=== PATIENT | female | born 1980 | race Caucasian/White ===

== ENCOUNTER 2018-04-21 19:07 | Inpatient (IN) | payer OTHER ==
[~2018-04-21] VITALS: Ht 152.4 cm; Wt 49.4 kg
[2018-04-21] MEDS ORDERED: IV NORMAL SALINE 1000ML BAG 1,000 ML IV ONE (20:45)
--- NOTE | 2018-04-21 20:54 | PHYS DOC ---
Past Medical History Past Medical History: Anxiety Past Surgical History: No Surgical History Alcohol Use: Occasionally Drug Use: None Adult General Chief Complaint Chief Complaint: HEMATEMESIS/VOMITING BLOOD HPI HPI Patient is a 38 year old female who presents with GI bleeding and abdominal pain. Patient states she has been on a three-day alcohol been shrinking excess of 1 gallon of hard liquor daily. She does have a history of alcoholism and frequent binges. She does not have a history of alcohol withdrawal other than feeling a little bit shaky. No seizures. Today, she reports to the ER complaining of abdominal pain and bloody emesis. She began having bloody emesis earlier today. She has had several episodes which she describes to be bright red and large volume. She has also been passing dark red blood clots and bloody diarrheal stools. She complains of diffuse abdominal pain. No fevers. She denies a prior history of any GI bleeding despite her alcohol abuse. Review of Systems Review of Systems Constitutional: Denies fever or chills Eyes: Denies change in visual acuity HENT: Denies nasal congestion or sore throat Respiratory: Denies cough or shortness of breath Cardiovascular: No additional information GI: as documented above : Denies dysuria Musculoskeletal: Denies back pain Integument: Denies rash Neurologic: Denies headache All other systems were reviewed and found to be within normal limits, except as documented in this note. Current Medications Current Medications Current Medications Medications (Trade) Dose Ordered Sig/[facility] Start Time Stop Time Status Last Admin Dose Admin Octreotide Acetate 500 mcg/ Sodium Chloride 101 ml @ 0 mls/hr CONT PRN 04/21/18 20:45 04/21/18 21:17 5 MLS/HR Sodium Chloride 1,000 ml @ 1,000 mls/hr 1X ONCE 04/21/18 20:45 04/21/18 21:44 DC 04/21/18 20:43 1,000 MLS/HR Allergies Allergies Allergies Coded Allergies Type Severity Reaction Last Updated Verified No Known Drug Allergies 03/15/14 No Physical Exam Physical Exam Constitutional: Well developed, well nourished, mild distress 2/2 pain and nausea HENT: Normocephalic, atraumatic, bilateral external ears normal, oropharynx moist Eyes: PERRLA, EOMI, conjunctiva normal Neck: Normal range of motion Cardiovascular:Heart rate regular rhythm, no murmur Lungs & Thorax: Bilateral breath sounds clear to auscultation Abdomen: diffusely tender to palpation with some guarding over the epigastrium Skin: Warm, dry, no erythema, no rash, pale Extremities: equal pulses in all extremities, no edema Neurologic: Alert and oriented X 3, normal motor function Psychologic: Affect normal Current Patient Data Vital Signs Vital Signs Date Time Temp Pulse Resp B/P (MAP) Pulse Ox O2 Delivery O2 Flow Rate FiO2 04/21/18 20:29 107 16 142/61 (88) 99 04/21/18 19:50 98.1 Room Air 98.1 EKG EKG Sinus Tachy No STEMI Interpretation Time: 20:45 Radiology/Procedures Radiology/Procedures FINDINGS: CT chest: Heart is normal in size. No pericardial or pleural effusion. Clear neck base. NG tube is seen with its tip in the fundus of stomach. No enlarged axillary, mediastinal or hilar adenopathy. Central airways are patent. Lungs are clear. No suspicious bony lesions in the chest. CT abdomen pelvis: Liver, spleen, gallbladder, pancreas, adrenals and kidneys are within normal limits. No enlarged retroperitoneal or pelvic adenopathy. There is a lobulated high attenuating lesion in the right hemipelvis measuring 11.4 x 9.6 x 9.3 cm (AP, transverse, cc) causing significant mass effect on the uterus displacing it to the left side and mass effect on the dome of the urinary bladder. Mass effect is also seen on the right external iliac vein. Urinary bladder demonstrates no radiopaque stones. Scattered diverticuli seen in the colon. No bowel obstruction. Normal appendix. 3.0 x 2.7 cm well-circumscribed low attenuating lesion is seen in the left ovary. No pneumoperitoneum. No suspicious bony lesion. IMPRESSION: 1. Large right hemipelvic lesion as described above. Differential diagnoses includes a large hemorrhagic cyst arising from the right adnexa. Left likely this may represent a Loculated hematoma although no significant inflammatory changes seen around this lesion. Gynecologic consultation recommended. Course & Med Decision Making Course & Med Decision Making Pertinent Labs and Imaging studies reviewed. (See chart for details) Patient is seen and examined. Although she is well appearing overall, during the interview, the patient sits upright and has about 4-500 mL of dark red blood emesis. She is moved to a resuscitation room. Acute GI bleeding workup is ordered. Octreotide, Protonix bolus and drip, we'll place NG tube. Medications for pain and nausea. We'll do CT scan. Vitals currently stable. Patient with acute GI bleeding in the emergency department. Her hemoglobin was stable at 10.7. I discussed this patient with the GI physician correctional sergeant who will consult in the morning. I also spoke to the hospitalist on-call who will admit the patient to the ICU for close observation. Incidentally, CT scan was done and revealing for some sort of pelvic mass. A subsequent ultrasound was completed and the mass was found to have blood flow. The patient had not previously been aware of this finding. This is not likely related to her presenting complaint and is incidental. Patient is admitted to the ICU for acute hour hemoglobin surveillance. NG tube was placed in the ER but did not produce significant additional amounts of red blood. The patient not have any acute vital sign changes during the ED course although she did remain mildly tachycardic. Consult is placed for GI to see the patient. I also placed orders for ultrasound and a consult form FROTHING MACHINE OPERATOR to see the patient. Prior to admission, I reviewed the CT findings with the patient and all of her questions were answered. Dragon Disclaimer Dragon Disclaimer This electronic medical record was generated, in whole or in part, using a voice recognition dictation system. Departure Departure Referrals: NO PCP (PCP) VAMSHI STEWART DO Apr 21, 2018 20:54
[2018-04-21] MEDS ORDERED: BENZOCAINE ONE 20% MUCOSAL SPRAY. (20:55)
[2018-04-21] MEDS ORDERED: CONTRAST GIVEN. MC PRN (21:00)
[2018-04-21] MEDS ORDERED: IOHEXOL 300 MG/ML 100ML VIAL. IV ONE (21:00)
[2018-04-21 21:01] LABS: BASO # 0.1 x10^3/uL (0.0-0.2); BASO % 1 % (0-3); EOS % 0 % (0-3); HEMOGLOBIN 10.5 g/dL (12.0-15.5); LYMPH # 1.5 x10^3/uL (1.0-4.8); LYMPH % 16 % (24-48); MEAN CORPUSCULAR HEMOGLOBIN 36 pg (25-35); MEAN CORPUSCULAR HGB CONC 35 g/dL (31-37); MEAN CORPUSCULAR VOLUME 104 fL (79-100); MONO # 0.9 x10^3/uL (0.0-1.1); MONO % 9 % (0-9); NEUT % 73 % (31-73); PLATELET COUNT 88 x10^3/uL (140-400); RED CELL DISTRIBUTION WIDTH 13.7 % (11.5-14.5); WHITE BLOOD COUNT 9.5 x10^3/uL (4.0-11.0)
[2018-04-21] MEDS: PANTOPRAZOLE SODIUM IV DRIP 80 MG in IV NORMAL SALINE 100ML 100 ML IV SCH (21:09)
[2018-04-21 21:10] LABS: PROTHROMBIN TIME PATIENT 14.6 SEC (11.7-14.0)
[2018-04-21 21:11] LABS: CALCIUM 9.1 mg/dL (8.5-10.1); CREATININE 0.8 mg/dL (0.6-1.0); GFR 80.7; POTASSIUM 4.3 mmol/L (3.5-5.1)
[2018-04-21 21:15] LABS: DIRECT BILIRUBIN 0.2 mg/dL (0.0-0.2); TOTAL BILIRUBIN 0.7 mg/dL (0.2-1.0)
[2018-04-21] MEDS ORDERED: ONDANSETRON PF 4 MG/2 ML VIAL. IV ONE (21:15)
[2018-04-21] MEDS ORDERED: fentaNYL PF VIAL 100 MCG/2 ML VIAL IV ONE ×2 (21:15→21:30)
[2018-04-21] MEDS ORDERED: PANTOPRAZOLE IV PUSH 40 MG VIAL. IVP ONE (21:15)
[2018-04-21] MEDS: OCTREOTIDE 500 MCG in IV NORMAL SALINE 100ML 100 ML IV PRN (21:17)
[2018-04-21] MEDS ORDERED: BENZOCAINE ONE 20% MUCOSAL SPRAY. MM ×2 (21:30)
--- NOTE | 2018-04-21 22:33 | EKG ---
[facility] [address] [place] [address] Test Date: 2018-04-21 Test Time: 20:39:47 Pat Name: ALAYNA HERNÁNDEZ Department: Room: 106 1 Gender: F [employer] Farm Operations Manager: : 1980 Requested By: VAMSHI STEWART Order Number: [id number] Reading MD: Carlitos Babcock MD Measurements Intervals [place] Rate: 138 P: 2 [place]: 100 QRS: 69 QRSD: 72 T: 47 QT: 304 QTc: 461 Interpretive Statements SINUS TACHYCARDIA Electronically Signed On 04-22-2018 9:46:08 CDT by Carlitos Babcock MD
[2018-04-21] MEDS ORDERED: fentaNYL PF VIAL 100 MCG/2 ML VIAL IV PRN (22:45)
[2018-04-21] MEDS ORDERED: ONDANSETRON PF 4 MG/2 ML VIAL. IV PRN ×2 (22:45→23:45)
--- NOTE | 2018-04-21 23:08 | RAD ---
PQRS Compliance statement: One or more of the following individualized dose reduction techniques were utilized for this examination: 1. Automated exposure control. 2. Adjustment of the mA and/or kV according to patient size. 3. Use of iterative reconstruction technique. Indication:chest pain, abd pain, gi bleed, pt vomiting blood
Omni 300 75ml,no priors TECHNIQUE: CT chest, abdomen and pelviswith IV contrast with multiplanar reformats. COMPARISON: None FINDINGS: CT chest: Heart is normal in size. No pericardial or pleural effusion. Clear neck base. NG tube is seen with its tip in the fundus of stomach. No enlarged axillary, mediastinal or hilar adenopathy. Central airways are patent. Lungs are clear. No suspicious bony lesions in the chest. CT abdomen pelvis: Liver, spleen, gallbladder, pancreas, adrenals and kidneys are within normal limits. No enlarged retroperitoneal or pelvic adenopathy. There is a lobulated high attenuating lesion in the right hemipelvis measuring 11.4 x 9.6 x 9.3 cm (AP, transverse, cc) causing significant mass effect on the uterus displacing it to the left side and mass effect on the dome of the urinary bladder. Mass effect is also seen on the right external iliac vein. Urinary bladder demonstrates no radiopaque stones. Scattered diverticuli seen in the colon. No bowel obstruction. Normal appendix. 3.0 x 2.7 cm well-circumscribed low attenuating lesion is seen in the left ovary. No pneumoperitoneum. No suspicious bony lesion. IMPRESSION: 1. Large right hemipelvic lesion as described above. Differential diagnoses includes a large hemorrhagic cyst arising from the right adnexa. Left likely this may represent a Loculated hematoma although no significant inflammatory changes seen around this lesion. Gynecologic consultation recommended. Electronically signed by: Randy Jackson DO (04/21/2018 11:04 PM) [facility]
[2018-04-21 23:30] VITALS: BP 157/73
[2018-04-21 23:45] VITALS: BP 153/110
[2018-04-21] MEDS ORDERED: 0.9 % SODIUM CHLORIDE 10 ML DISP.SYRIN. IV PRN (23:45)
[2018-04-21] MEDS ORDERED: BISACODYL 10 MG SUPP.RECT. PR PRN (23:45)
[2018-04-21 23:55] LABS: HEMATOCRIT 27.1 % (36.0-47.0); HEMOGLOBIN 9.7 g/dL (12.0-15.5); RED BLOOD COUNT 2.63 x10^6/uL (3.50-5.40); RED CELL DISTRIBUTION WIDTH 13.6 % (11.5-14.5); WHITE BLOOD COUNT 7.3 x10^3/uL (4.0-11.0)
[2018-04-22] VITALS (22 sets, daily range): BP systolic 129–173; BP diastolic 65–98
[2018-04-22] MEDS: IV NORMAL SALINE 1000ML BAG 1,000 ML IV SCH ×2 (00:34→12:05)
[2018-04-22] MEDS: PHENOL ORAL SPRAY 177ML BOTTLE. PO PRN ×3 (01:32→23:55)
[2018-04-22] MEDS: HYDROmorphone 2 MG/ML VIAL IVP PRN ×7 (01:32→23:59)
[2018-04-22 04:38] LABS: HEMATOCRIT 25.7 % (36.0-47.0); HEMOGLOBIN 9.2 g/dL (12.0-15.5); RED BLOOD COUNT 2.47 x10^6/uL (3.50-5.40); RED CELL DISTRIBUTION WIDTH 13.7 % (11.5-14.5); WHITE BLOOD COUNT 5.9 x10^3/uL (4.0-11.0)
[2018-04-22 05:13] LABS: ALBUMIN 3.6 g/dL (3.4-5.0); ALBUMIN/GLOBULIN RATIO 1.1 (1.0-1.7); CALCIUM 8.5 mg/dL (8.5-10.1); CREATININE 0.8 mg/dL (0.6-1.0); GFR 80.7; POTASSIUM 4.1 mmol/L (3.5-5.1); TOTAL BILIRUBIN 0.6 mg/dL (0.2-1.0)
[2018-04-22] MEDS: PANTOPRAZOLE SODIUM IV DRIP 80 MG in IV NORMAL SALINE 100ML 100 ML IV SCH ×2 (05:50→12:04)
--- NOTE | 2018-04-22 08:13 | RAD ---
Pelvic ultrasound, 04/22/2018: HISTORY: Pelvic mass Transabdominal scans were obtained. The uterus is within normal limits in size and deviated to the left of midline. The intrauterine echo complex is unremarkable. The left ovary measures 3.7 x 3.4 x 3.0 cm. It contains a 2.5 cm simple cyst. Blood flow is present in the left ovary. There is a large lobulated right adnexal mass measuring 11.9 x 9.2 x 8.1 cm. It demonstrates heterogeneous internal echoes. There is internal color flow indicating this is a solid mass. The right ovary cannot be visualized separately from this mass. No free fluid is evident in the pelvis. IMPRESSION: 1. Small left ovarian cyst. 2. Large solid right adnexal mass, most likely of ovarian origin. A neoplastic etiology is suspected. An exophytic uterine mass is much less likely. Electronically signed by: Alfonso Ross MD (04/22/2018 8:10 AM) [facility]
[2018-04-22] MEDS: MULTIVIT INFUSN,ADULT 4,VIT K 10 ML, THIAMINE INJ 100 MG, FOLIC ACID INJ 1 MG in IV NOR... IV SCH (08:22)
[2018-04-22 08:31] LABS: HEMATOCRIT 25.1 % (36.0-47.0); RED BLOOD COUNT 2.42 x10^6/uL (3.50-5.40); RED CELL DISTRIBUTION WIDTH 13.7 % (11.5-14.5); WHITE BLOOD COUNT 5.6 x10^3/uL (4.0-11.0)
--- NOTE | 2018-04-22 09:54 | PDOC2 ---
GI CONSULT Reason For Consult: GI Bleed HPI: HPI: 38 y/o female who drinks at least 17oz vodka ~3 times weekly. Last week had some black stools and had some lightheadedness. Yesterday began vomiting dark and bright red blood, sometimes w/ clots. No h/o GI bleeding. Hgb 10.5, now 9. MCV 104. BUN 33, now 20. On PPI and octreotide drips, also has NGT. On imaging - large solid right adnexal mass. INFORMATION ASSURANCE MANAGER eval pending. Denies chronic issues w/ n/v. Denies reflux and dysphagia. Has intermittent lower abd pain and back pain. No diarrhea or constipation. Weight and appetite stable. No hematochezia. No previous EGD or colonoscopy. No GB, liver, or pancreas history. Takes Excedrin when she has a hangover and an OTC pill to help her sleep. PMH: PMH: insomnia, anxiety, alcoholism/addictions, asthma and allergies FH: Family History: No pertinent hx (denies GI cancers) Social History: Smoke: <1 pack per day ALCOHOL: heavy Drugs: None ROS: GEN: Denies fevers, chills, sweats HEENT: Denies blurred vision, sore throat CV: Denies chest pain RESP: Denies shortness of air, cough GI: Per HPI : Denies hematuria, dysuria ENDO: Denies weight changes NEURO: +lightheaded MSK: Denies weakness, joint pain/swelling SKIN: Denies jaundice, pruritus Vitals: Vitals: Vital Signs Date Time Temp Pulse Resp B/P (MAP) Pulse Ox O2 Delivery O2 Flow Rate FiO2 04/22/18 08:21 23 99 Room Air 04/22/18 08:00 98.3 104 144/87 (106) 98.3 Labs: Labs: Laboratory Tests Test 04/21/18 20:50 04/21/18 22:15 04/21/18 23:50 04/22/18 04:00 White Blood Count 9.5 x10^3/uL (4.0-11.0) 7.3 x10^3/uL (4.0-11.0) 5.9 x10^3/uL (4.0-11.0) Red Blood Count 2.90 x10^6/uL (3.50-5.40) 2.63 x10^6/uL (3.50-5.40) 2.47 x10^6/uL (3.50-5.40) Hemoglobin 10.5 g/dL (12.0-15.5) 9.7 g/dL (12.0-15.5) 9.2 g/dL (12.0-15.5) Hematocrit 30.0 % (36.0-47.0) 27.1 % (36.0-47.0) 25.7 % (36.0-47.0) Mean Corpuscular Volume 104 fL (79-100) 103 fL (79-100) 104 fL (79-100) Mean Corpuscular Hemoglobin 36 pg (25-35) 37 pg (25-35) 37 pg (25-35) Mean Corpuscular Hemoglobin Concent 35 g/dL (31-37) 36 g/dL (31-37) 36 g/dL (31-37) Red Cell Distribution Width 13.7 % (11.5-14.5) 13.6 % (11.5-14.5) 13.7 % (11.5-14.5) Platelet Count 88 x10^3/uL (140-400) 76 x10^3/uL (140-400) 68 x10^3/uL (140-400) Neutrophils (%) (Auto) 73 % (31-73) Lymphocytes (%) (Auto) 16 % (24-48) Monocytes (%) (Auto) 9 % (0-9) Eosinophils (%) (Auto) 0 % (0-3) Basophils (%) (Auto) 1 % (0-3) Neutrophils # (Auto) 7.0 x10^3uL (1.8-7.7) Lymphocytes # (Auto) 1.5 x10^3/uL (1.0-4.8) Monocytes # (Auto) 0.9 x10^3/uL (0.0-1.1) Eosinophils # (Auto) 0.0 x10^3/uL (0.0-0.7) Basophils # (Auto) 0.1 x10^3/uL (0.0-0.2) Prothrombin Time 14.6 SEC (11.7-14.0) Prothromb Time International Ratio 1.2 (0.8-1.1) Activated Partial Thromboplast Time 24 SEC (24-38) Maternal Serum HCG Beta Subunit < 1 mIU/mL (0-5) Sodium Level 139 mmol/L (136-145) 139 mmol/L (136-145) Potassium Level 4.3 mmol/L (3.5-5.1) 4.1 mmol/L (3.5-5.1) Chloride Level 101 mmol/L (98-107) 103 mmol/L (98-107) Carbon Dioxide Level 23 mmol/L (21-32) 25 mmol/L (21-32) Anion Gap 15 (6-14) 11 (6-14) Blood Urea Nitrogen 33 mg/dL (7-20) 20 mg/dL (7-20) Creatinine 0.8 mg/dL (0.6-1.0) 0.8 mg/dL (0.6-1.0) Estimated GFR (Cockcroft-Gault) 80.7 80.7 Glucose Level 136 mg/dL (70-99) 111 mg/dL (70-99) Calcium Level 9.1 mg/dL (8.5-10.1) 8.5 mg/dL (8.5-10.1) Total Bilirubin 0.7 mg/dL (0.2-1.0) 0.6 mg/dL (0.2-1.0) Direct Bilirubin 0.2 mg/dL (0.0-0.2) Aspartate Amino Transf (AST/SGOT) 36 U/L (15-37) 16 U/L (15-37) Alanine Aminotransferase (ALT/SGPT) 19 U/L (14-59) 19 U/L (14-59) Alkaline Phosphatase 75 U/L (46-116) 61 U/L (46-116) Troponin I Quantitative < 0.017 ng/mL (0.000-0.055) Total Protein 8.0 g/dL (6.4-8.2) 7.0 g/dL (6.4-8.2) Albumin 4.0 g/dL (3.4-5.0) 3.6 g/dL (3.4-5.0) Lipase 86 U/L (73-393) Lactic Acid Level 1.1 mmol/L (0.4-2.0) BUN/Creatinine Ratio 25 (6-20) Albumin/Globulin Ratio 1.1 (1.0-1.7) Test 04/22/18 08:20 White Blood Count 5.6 x10^3/uL (4.0-11.0) Red Blood Count 2.42 x10^6/uL (3.50-5.40) Hemoglobin 9.0 g/dL (12.0-15.5) Hematocrit 25.1 % (36.0-47.0) Mean Corpuscular Volume 104 fL (79-100) Mean Corpuscular Hemoglobin 37 pg (25-35) Mean Corpuscular Hemoglobin Concent 36 g/dL (31-37) Red Cell Distribution Width 13.7 % (11.5-14.5) Platelet Count 70 x10^3/uL (140-400) Allergies: Coded Allergies: No Known Drug Allergies (Unverified , 03/15/14) Medications: Current Medications Medications (Trade) Dose Ordered Sig/Karis Route PRN Reason Start Time Stop Time Status Last Admin Dose Admin Sodium Chloride 1,000 ml @ 1,000 mls/hr 1X ONCE IV 04/21/18 20:45 04/21/18 21:44 DC 04/21/18 20:43 Octreotide Acetate 500 mcg/ Sodium Chloride 101 ml @ 0 mls/hr CONT PRN IV SEE I/O RECORD 04/21/18 20:45 04/21/18 21:17 Pantoprazole Sodium 80 mg/ Sodium Chloride 100 ml @ 10 mls/hr Q10H IV 04/21/18 21:30 04/22/18 05:50 Pantoprazole Sodium (PROTONIX VIAL for IV PUSH) 80 mg 1X ONCE IVP 04/21/18 21:15 04/21/18 21:16 DC 04/21/18 21:00 Fentanyl Citrate (Fentanyl 2ml Vial) 50 mcg 1X ONCE IV 04/21/18 21:15 04/21/18 21:16 DC 04/21/18 20:59 Ondansetron HCl (Zofran) 4 mg 1X ONCE IV 04/21/18 21:15 04/21/18 21:16 DC 04/21/18 20:59 Iohexol (Omnipaque 300 Mg/ml) 75 ml 1X ONCE IV 04/21/18 21:00 04/21/18 21:01 DC 04/21/18 21:00 Benzocaine (Hurricaine One) 1 spray 1X ONCE MM 04/21/18 21:30 04/21/18 21:31 DC 04/21/18 21:08 Benzocaine (Hurricaine One) 1 spray 1X ONCE MM 04/21/18 21:30 04/21/18 21:31 DC 04/21/18 21:08 Fentanyl Citrate (Fentanyl 2ml Vial) 50 mcg 1X ONCE IV 04/21/18 21:30 04/21/18 21:31 DC 04/21/18 21:15 Fentanyl Citrate (Fentanyl 2ml Vial) 50 mcg PRN Q1HR PRN IV PAIN 04/21/18 22:45 04/22/18 08:40 DC 04/21/18 23:54 Sodium Chloride 1,000 ml @ 75 mls/hr [id number] IV 04/21/18 22:45 04/22/18 22:44 04/22/18 00:34 Lorazepam (Ativan) 0.5 mg PRN Q6HRS PRN IV ANXIETY / AGITATION 04/21/18 23:45 04/22/18 02:21 Multivitamins 10 ml/Thiamine HCl 100 mg/Folic Acid 1 mg/Sodium Chloride 1,011.2 ml @ 100 mls/ hr DAILY IV 04/22/18 09:00 04/26/18 19:07 04/22/18 08:22 Throat Lozenges (Chloraseptic) 1 spray PRN Q2HR PRN PO SORE THROAT 04/22/18 01:00 04/22/18 04:13 Hydromorphone HCl (Dilaudid) 0.5 mg PRN Q3HRS PRN IVP PAIN 04/22/18 01:00 04/22/18 08:21 Imaging: Imaging: Chest/A/P CT IMPRESSION: 1. Large right hemipelvic lesion as described above. Differential diagnoses includes a large hemorrhagic cyst arising from the right adnexa. Left likely this may represent a Loculated hematoma although no significant inflammatory changes seen around this lesion. Gynecologic consultation recommended. Transvaginal US IMPRESSION: 1. Small left ovarian cyst. 2. Large solid right adnexal mass, most likely of ovarian origin. A neoplastic etiology is suspected. An exophytic uterine mass is much less likely. PE: GEN: NAD HEENT: Atraumatic, NGT w/ watery reddish pinkish material LUNGS: CTAB HEART: tachycardic ABD: quiet, soft, not particularly tender, non-distended EXTREMITY: No edema SKIN: No rashes, no jaundice NEURO/PSYCH: A & O 3 A/P: A/P: Hematemesis, dark stools Macrocytic anemia Alcohol abuse Right adnexal mass NSAID use -- She agrees to EGD this afternoon and requests NGT not be removed "until she's asleep." Continue PPI, will review need for octreotide w/ Dr. Escalona. Monitor labs, withdrawal precautions, await INFORMATION ASSURANCE MANAGER thoughts. BERNADETTE DUKES Apr 22, 2018 09:54
[2018-04-22] MEDS: IV RINGERS,LACTATED 1000ML 1,000 ML IV SCH ×2 (10:00→15:37)
[2018-04-22] MEDS ORDERED: MIDAZOLAM HCL/PF 2 MG/2 ML VIAL. IV PRN (10:00)
[2018-04-22] MEDS ORDERED: LIDOCAINE 1% PF 2 ML VIAL. ID PRN ×2 (10:00→10:30)
[2018-04-22] MEDS ORDERED: fentaNYL PF VIAL 100 MCG/2 ML VIAL IV PRN ×4 (10:00→10:30)
[2018-04-22] MEDS ORDERED: IV RINGERS,LACTATED 1000ML 1,000 ML IV SCH (10:18)
[2018-04-22] MEDS ORDERED: HYDROmorphone 2 MG/ML VIAL IV PRN (10:30)
[2018-04-22] MEDS ORDERED: MORPHINE SULFATE 2 MG/ML VIAL. IV PRN (10:30)
[2018-04-22] MEDS ORDERED: ONDANSETRON PF 4 MG/2 ML VIAL. IV PRN (10:30)
[2018-04-22] MEDS ORDERED: PROCHLORPERAZINE 10 MG/2 ML VIAL. IV PRN (10:30)
[2018-04-22] MEDS: OCTREOTIDE 500 MCG in IV NORMAL SALINE 100ML 100 ML IV PRN (13:23)
[2018-04-22 13:56] LABS: HEMOGLOBIN 8.9 g/dL (12.0-15.5); RED BLOOD COUNT 2.39 x10^6/uL (3.50-5.40); RED CELL DISTRIBUTION WIDTH 13.7 % (11.5-14.5); WHITE BLOOD COUNT 6.9 x10^3/uL (4.0-11.0)
--- NOTE | 2018-04-22 14:00 | HP ---
ADMIT DATE: 04/22/2018 CHIEF COMPLAINT: Abdominal pain and hematemesis. HISTORY OF PRESENT ILLNESS: The patient is a pleasant 38-year-old female who drinks too much. She presents to the ER with hematemesis and abdominal pain that has been occurring for a couple of days. She states she normally drinks about a liter of vodka a day. Sometimes that lasts her a couple of days. She tried taking some hmcg-ghb-jnoqgzk meds, but that did not seem to be working. She states she has lost about 15 pounds in the past couple of weeks as well. The bleeding was bright red and large volume. She is also having bloody stools with clots. While in the ER, we checked some labs. Her hemoglobin is low at 9. The patient has been admitted. She is scheduled for an EGD this afternoon. We suspect she has esophageal varices, but interestingly when we did the imaging, we find an incidental finding of a pelvic mass, it is described as large solid right adnexal mass. We will also consult INDEPENDENT CONTRACTOR. PAST MEDICAL HISTORY: Alcoholism, anxiety. ALLERGIES: None. FAMILY HISTORY: Hypertension. SOCIAL HISTORY: She drinks a liter of vodka a day. I think she smokes socially. No drugs. She used to work, but apparently has lost her job. MEDICATIONS: Reviewed, please refer to the MRAD, but she is on mostly gigo-hgj-cauzcqe meds. REVIEW OF SYSTEMS: GENERAL: No history of weight change, weakness or fevers. SKIN: No bruising, hair changes or rashes. EYES: No blurred, double or loss of vision. NOSE AND THROAT: No history of nosebleeds, hoarseness or sore throat. HEART: No history of palpitations, chest pain or shortness of breath on exertion. LUNGS: Denies cough, hemoptysis, wheezing or shortness of breath. GASTROINTESTINAL: She complains of abdominal pain and hematemesis. GENITOURINARY: No history of frequency, urgency, hesitancy or nocturia. NEUROLOGIC: Denies history of numbness, tingling, tremor or weakness. PSYCHIATRIC: She complains of depression. ENDOCRINE: No history of heat or cold intolerance, polyuria or polydipsia. EXTREMITIES: Denies muscle weakness, joint pain, pain on walking or stiffness. PHYSICAL EXAMINATION: VITAL SIGNS: Temperature afebrile, pulse 80, respirations 20, blood pressure 156/84, O2 sat 98%. GENERAL: She is alert, cooperative. Her mom is present. Mom is good support for her. HEART: Normal S1, S2. LUNGS: Clear to auscultation. ABDOMEN: Soft and tender. EXTREMITIES: Trace edema. SKIN: No rashes. ENDOCRINE: No thyromegaly. LYMPHATICS: No cervical nodes. HEMATOPOIETIC: No bruising. LABORATORY DATA: Hemoglobin is 9 this morning. Electrolytes are normal. Iron is high at 198, iron saturation high at 77. Liver function tests are surprisingly normal. ASSESSMENT AND PLAN: Gastrointestinal bleed, suspect esophageal varices. The patient has been admitted. We will follow hemoglobin levels, IV proton pump inhibitors, consult GI and I think she is scheduled for an endoscopy this afternoon. We will transfuse if she drops below 8. Home meds. Prognosis is guarded. I told her to please quit drinking alcohol. FEMI LEW DO DR: HERBERT/alexis JOB#: [id number] / [id number]
[2018-04-22] MEDS ORDERED: PROPOFOL 40 ML IV ONE (14:33)
[2018-04-22] MEDS ORDERED: EPINEPHrine SYRINGE 1 MG/10 ML SYRINGE ONE (14:44)
[2018-04-22] MEDS ORDERED: EPINEPHrine 1 MG/ML VIAL INJ ONE (14:45)
--- NOTE | 2018-04-22 14:48 | PDOC4 ---
PROCEDURE Procedure Hematemesis, bleeding EGD anesthesia Findings- normal esophagus- MW at GE junction- injected with epi 2 cc- gastritis without ulcer, duodenitis without ulcer - NO active bleeding Plan- slowly advance diet stop drips, give PO LAYNE PENA MD Apr 22, 2018 14:48
[2018-04-22 16:07] LABS: HEMATOCRIT 23.9 % (36.0-47.0); HEMOGLOBIN 8.3 g/dL (12.0-15.5); RED BLOOD COUNT 2.29 x10^6/uL (3.50-5.40); RED CELL DISTRIBUTION WIDTH 13.6 % (11.5-14.5); WHITE BLOOD COUNT 10.8 x10^3/uL (4.0-11.0)
[2018-04-22] MEDS: PROCHLORPERAZINE 10 MG/2 ML VIAL. IV PRN (17:42)
[2018-04-22 20:16] LABS: HEMATOCRIT 23.3 % (36.0-47.0); HEMOGLOBIN 8.4 g/dL (12.0-15.5); RED BLOOD COUNT 2.23 x10^6/uL (3.50-5.40); RED CELL DISTRIBUTION WIDTH 13.5 % (11.5-14.5); WHITE BLOOD COUNT 8.9 x10^3/uL (4.0-11.0)
[2018-04-22 23:48] LABS: HEMATOCRIT 24.7 % (36.0-47.0); HEMOGLOBIN 8.8 g/dL (12.0-15.5); RED BLOOD COUNT 2.38 x10^6/uL (3.50-5.40); RED CELL DISTRIBUTION WIDTH 13.5 % (11.5-14.5); WHITE BLOOD COUNT 8.5 x10^3/uL (4.0-11.0)
[2018-04-22] MEDS: ZOLPIDEM 5 MG TABLET. PO PRN (23:54)
--- NOTE | 2018-04-23 01:30 | CONS ---
DATE OF CONSULTATION: 04/22/2018 REASON FOR CONSULTATION: Pelvic mass. CONSULTING PHYSICIAN: Dr. Samuel. CONSULTING SERVICE: Dr. Freddy Stacy, SL[employer] OFF MILL TENDER. HISTORY OF PRESENT ILLNESS: This is a 38-year-old very anxious white female, 4, para 2 with 2 previous terminations, presented to the ER with hematemesis, possible hemoptysis and hematochezia. The patient was worked up by GI and Internal Medicine for that. During her evaluation with CT and vaginal ultrasound, the patient was noted to have a considerably large right adnexal mass measuring 11.9 x 9.2 x 8.1. It appears to be a solid mass and the right ovary cannot be visualized. There is no free fluid in the pelvis. The patient has not had any complaints of pelvic pain or abnormal uterine bleeding as stated before. Last menstrual period was approximately 2 weeks ago. She reports them as regular and normal. PAST MEDICAL HISTORY: Alcohol abuse, anxiety. PAST SURGICAL HISTORY: Leg surgery for broken leg, otherwise none. FAMILY HISTORY: Hypertension, diabetes on both sides. SOCIAL HISTORY: Positive for tobacco and alcohol. ALLERGIES: None. REVIEW OF SYSTEMS: Per HPI. PHYSICAL EXAMINATION: Review Dr. Samuel's exam. ABDOMEN: Shows no tenderness, scaphoid. No rebound, no masses palpated. PELVIC: We will perform pelvic exam in the morning and bring the patient down the third floor. LABORATORY DATA: Reviewed. IMPRESSION: Gastrointestinal bleed secondary to alcohol abuse, anemia and pelvic mass, incidental finding on CT. A long discussion was done with the patient and the patient's mother. The patient was reassured that the first step would be getting a CA-125 and CEA and perform a pelvic exam. There is no 100% way to tell whether this is malignant except for a tissue diagnosis, but a CA-125 with allow us to determine how that is to be performed when the CA-125 is normal, but the patient can have surgery by myself or another pathology technician if she deems to have it done after the information is back. If the CA-125 is elevated, I would refer her to a STEWARD DISHWASHER oncologist. I appreciate you allowing me to participate in the care of this patient. If you have any questions about this patient or any other patient, feel free to contact me. FREDDY STACY MD DR: VICTOR HUGO/alexis JOB#: [id number] / [id number]
[2018-04-23 03:06] VITALS: BP 126/74
[2018-04-23] MEDS: HYDROmorphone 2 MG/ML VIAL IVP PRN ×3 (08:04→20:30)
[2018-04-23 08:05] VITALS: BP 131/84
[2018-04-23] MEDS: MULTIVIT INFUSN,ADULT 4,VIT K 10 ML, THIAMINE INJ 100 MG, FOLIC ACID INJ 1 MG in IV NOR... IV SCH (08:29)
[2018-04-23] MEDS: PANTOPRAZOLE 40 MG TABLET.DR. PO SCH (08:34)
--- NOTE | 2018-04-23 08:56 | PDOC ---
Provider Note Provider Note Pelvic Exam Nl est gent vaginal mucosa nl cervix nl no CMT large smooth R adnexal mass mobile unable to palpate uterus or there was no l adnexal masses PAP performed without difficulty Awaiting Ca 125 pt at some point needs tissue diagnosis if ca125 is nl Can be followed on a out pt basis FREDDY ELAM MD Apr 23, 2018 08:56
[2018-04-23] MEDS ORDERED: ACETAMINOPHEN 500 MG TABLET PO PRN (09:00)
[2018-04-23] MEDS ORDERED: diphenhydrAMINE HCL 25 MG CAPSULE PO PRN (09:00)
[2018-04-23] MEDS ORDERED: ONDANSETRON PF 4 MG/2 ML VIAL. IV PRN (09:00)
[2018-04-23] MEDS ORDERED: chlordiazePOXIDE HCL 25 MG CAPSULE PO PRN (09:00)
[2018-04-23 11:13] VITALS: BP 94/60
[2018-04-23 11:26] LABS: CA 125 9.3 U/mL (0.0-38.1)
--- NOTE | 2018-04-23 11:41 | PDOC3 ---
Discharge Summary Visit Information Date of Admission: Apr 21, 2018 Date of Discharge: Apr 23, 2018 Admitting Diagnosis Comment: hematemesis resolved status post EGD 04/22/18 - SMALL Jones francis tear Small left ovarian cyst. Large solid right adnexal mass, most likely of ovarian origin. A neoplastic etiology is suspected. Macrocytic anemia Alcohol abuse NSAID use Brief Hospital Course Allergies Allergies Coded Allergies Type Severity Reaction Last Updated Verified No Known Drug Allergies 04/22/18 No Vital Signs Vital Signs Date Time Temp Pulse Resp B/P (MAP) Pulse Ox O2 Delivery O2 Flow Rate FiO2 04/23/18 11:13 97.7 98 16 94/60 (71) 100 Room Air 97.7 04/22/18 14:53 2 Lab Results Laboratory Tests Test 04/21/18 20:50 04/21/18 22:15 04/21/18 23:40 04/21/18 23:50 White Blood Count 9.5 x10^3/uL (4.0-11.0) 7.3 x10^3/uL (4.0-11.0) Red Blood Count 2.90 x10^6/uL (3.50-5.40) 2.63 x10^6/uL (3.50-5.40) Hemoglobin 10.5 g/dL (12.0-15.5) 9.7 g/dL (12.0-15.5) Hematocrit 30.0 % (36.0-47.0) 27.1 % (36.0-47.0) Mean Corpuscular Volume 104 fL (79-100) 103 fL (79-100) Mean Corpuscular Hemoglobin 36 pg (25-35) 37 pg (25-35) Mean Corpuscular Hemoglobin Concent 35 g/dL (31-37) 36 g/dL (31-37) Red Cell Distribution Width 13.7 % (11.5-14.5) 13.6 % (11.5-14.5) Platelet Count 88 x10^3/uL (140-400) 76 x10^3/uL (140-400) Neutrophils (%) (Auto) 73 % (31-73) Lymphocytes (%) (Auto) 16 % (24-48) Monocytes (%) (Auto) 9 % (0-9) Eosinophils (%) (Auto) 0 % (0-3) Basophils (%) (Auto) 1 % (0-3) Neutrophils # (Auto) 7.0 x10^3uL (1.8-7.7) Lymphocytes # (Auto) 1.5 x10^3/uL (1.0-4.8) Monocytes # (Auto) 0.9 x10^3/uL (0.0-1.1) Eosinophils # (Auto) 0.0 x10^3/uL (0.0-0.7) Basophils # (Auto) 0.1 x10^3/uL (0.0-0.2) Prothrombin Time 14.6 SEC (11.7-14.0) Prothromb Time International Ratio 1.2 (0.8-1.1) Activated Partial Thromboplast Time 24 SEC (24-38) Maternal Serum HCG Beta Subunit < 1 mIU/mL (0-5) Sodium Level 139 mmol/L (136-145) Potassium Level 4.3 mmol/L (3.5-5.1) Chloride Level 101 mmol/L (98-107) Carbon Dioxide Level 23 mmol/L (21-32) Anion Gap 15 (6-14) Blood Urea Nitrogen 33 mg/dL (7-20) Creatinine 0.8 mg/dL (0.6-1.0) Estimated GFR (Cockcroft-Gault) 80.7 Glucose Level 136 mg/dL (70-99) Calcium Level 9.1 mg/dL (8.5-10.1) Total Bilirubin 0.7 mg/dL (0.2-1.0) Direct Bilirubin 0.2 mg/dL (0.0-0.2) Aspartate Amino Transf (AST/SGOT) 36 U/L (15-37) Alanine Aminotransferase (ALT/SGPT) 19 U/L (14-59) Alkaline Phosphatase 75 U/L (46-116) Troponin I Quantitative < 0.017 ng/mL (0.000-0.055) Total Protein 8.0 g/dL (6.4-8.2) Albumin 4.0 g/dL (3.4-5.0) Lipase 86 U/L (73-393) Lactic Acid Level 1.1 mmol/L (0.4-2.0) Nasal Screen MRSA (PCR) Negative (Negative) Test 04/22/18 04:00 04/22/18 08:20 04/22/18 11:40 04/22/18 16:00 White Blood Count 5.9 x10^3/uL (4.0-11.0) 5.6 x10^3/uL (4.0-11.0) 6.9 x10^3/uL (4.0-11.0) 10.8 x10^3/uL (4.0-11.0) Red Blood Count 2.47 x10^6/uL (3.50-5.40) 2.42 x10^6/uL (3.50-5.40) 2.39 x10^6/uL (3.50-5.40) 2.29 x10^6/uL (3.50-5.40) Hemoglobin 9.2 g/dL (12.0-15.5) 9.0 g/dL (12.0-15.5) 8.9 g/dL (12.0-15.5) 8.3 g/dL (12.0-15.5) Hematocrit 25.7 % (36.0-47.0) 25.1 % (36.0-47.0) 25.0 % (36.0-47.0) 23.9 % (36.0-47.0) Mean Corpuscular Volume 104 fL (79-100) 104 fL (79-100) 105 fL (79-100) 104 fL (79-100) Mean Corpuscular Hemoglobin 37 pg (25-35) 37 pg (25-35) 37 pg (25-35) 36 pg ( 25-35) Mean Corpuscular Hemoglobin Concent 36 g/dL (31-37) 36 g/dL (31-37) 36 g/dL (31-37) 35 g/dL (31-37) Red Cell Distribution Width 13.7 % (11.5-14.5) 13.7 % (11.5-14.5) 13.7 % (11.5-14.5) 13.6 % (11.5-14.5) Platelet Count 68 x10^3/uL (140-400) 70 x10^3/uL (140-400) 68 x10^3/uL (140-400) 63 x10^3/uL (140-400) Sodium Level 139 mmol/L (136-145) Potassium Level 4.1 mmol/L (3.5-5.1) Chloride Level 103 mmol/L (98-107) Carbon Dioxide Level 25 mmol/L (21-32) Anion Gap 11 (6-14) Blood Urea Nitrogen 20 mg/dL (7-20) Creatinine 0.8 mg/dL (0.6-1.0) Estimated GFR (Cockcroft-Gault) 80.7 BUN/Creatinine Ratio 25 (6-20) Glucose Level 111 mg/dL (70-99) Calcium Level 8.5 mg/dL (8.5-10.1) Total Bilirubin 0.6 mg/dL (0.2-1.0) Aspartate Amino Transf (AST/SGOT) 16 U/L (15-37) Alanine Aminotransferase (ALT/SGPT) 19 U/L (14-59) Alkaline Phosphatase 61 U/L (46-116) Total Protein 7.0 g/dL (6.4-8.2) Albumin 3.6 g/dL (3.4-5.0) Albumin/Globulin Ratio 1.1 (1.0-1.7) Iron Level 198 ug/dL (50-170) Total Iron Binding Capacity 256 ug/dL (250-450) Iron Saturation 77 % (15-34) Vitamin B12 Level 348 pg/mL (247-911) Test 04/22/18 20:05 04/22/18 23:44 White Blood Count 8.9 x10^3/uL (4.0-11.0) 8.5 x10^3/uL (4.0-11.0) Red Blood Count 2.23 x10^6/uL (3.50-5.40) 2.38 x10^6/uL (3.50-5.40) Hemoglobin 8.4 g/dL (12.0-15.5) 8.8 g/dL (12.0-15.5) Hematocrit 23.3 % (36.0-47.0) 24.7 % (36.0-47.0) Mean Corpuscular Volume 104 fL (79-100) 104 fL (79-100) Mean Corpuscular Hemoglobin 38 pg (25-35) 37 pg (25-35) Mean Corpuscular Hemoglobin Concent 36 g/dL (31-37) 36 g/dL (31-37) Red Cell Distribution Width 13.5 % (11.5-14.5) 13.5 % (11.5-14.5) Platelet Count 62 x10^3/uL (140-400) 66 x10^3/uL (140-400) CA 125 Antigen 9.3 U/mL (0.0-38.1) Laboratory Tests Test 04/22/18 11:40 04/22/18 16:00 04/22/18 20:05 04/22/18 23:44 White Blood Count 6.9 x10^3/uL (4.0-11.0) 10.8 x10^3/uL (4.0-11.0) 8.9 x10^3/uL (4.0-11.0) 8.5 x10^3/uL (4.0-11.0) Red Blood Count 2.39 x10^6/uL (3.50-5.40) 2.29 x10^6/uL (3.50-5.40) 2.23 x10^6/uL (3.50-5.40) 2.38 x10^6/uL (3.50-5.40) Hemoglobin 8.9 g/dL (12.0-15.5) 8.3 g/dL (12.0-15.5) 8.4 g/dL (12.0-15.5) 8.8 g/dL (12.0-15.5) Hematocrit 25.0 % (36.0-47.0) 23.9 % (36.0-47.0) 23.3 % (36.0-47.0) 24.7 % (36.0-47.0) Mean Corpuscular Volume 105 fL (79-100) 104 fL (79-100) 104 fL (79-100) 104 fL (79-100) Mean Corpuscular Hemoglobin 37 pg (25-35) 36 pg (25-35) 38 pg (25-35) 37 pg ( 25-35) Mean Corpuscular Hemoglobin Concent 36 g/dL (31-37) 35 g/dL (31-37) 36 g/dL (31-37) 36 g/dL (31-37) Red Cell Distribution Width 13.7 % (11.5-14.5) 13.6 % (11.5-14.5) 13.5 % (11.5-14.5) 13.5 % (11.5-14.5) Platelet Count 68 x10^3/uL (140-400) 63 x10^3/uL (140-400) 62 x10^3/uL (140-400) 66 x10^3/uL (140-400) CA 125 Antigen 9.3 U/mL (0.0-38.1) Brief Hospital Course Ms. Meier is a 38 old female who uses NSAIDs and also was an alcoholic admitted because of hematemesis and was found to have a small Jones- Francis tear via EGD 04/22/18. Hemodynamically stable. Incidental finding of a large solid right adnexal mass, could not rule out malignancy in origin. CA-125 ordered but that is still pending. Seen by [employer] 6 DEALER. I advised to follow-up with OCCUPATIONAL THERAPIST ASSISTANTS onco if CA 125 is elevated But our OCCUPATIONAL THERAPIST ASSISTANTS will follow up or set up elective ovarian surgery if CA 125 is not elevated as per chart/[employer]UP[employer] THERAPIST [employer]IST[employer] note reviewed by myself. Patient seen and examined, cleared by GI to DC. Tolerating regular diet Consults performed GI, [employer] DEALER Procedures performed EGD 04/22/18-small Jones-Francis tear Rx on chart Discharge Information Condition at Discharge: Improved, Stable Follow Up: Weeks (ff up Dr Regis jimenez CA 125 reuslts) Disposition/Orders: D/C to Home JACKI MENDEZ MD Apr 23, 2018 11:41
[2018-04-23] MEDS ORDERED: PANT20TA2 PO (11:44)
[2018-04-23] MEDS ORDERED: CHLO1CAP PO (11:44)
--- NOTE | 2018-04-23 11:55 | PDOC ---
Subjective: Subjective: I saw her earlier this morning. Tolerating some solid foods (toast) but still has occasional nausea and mid abdominal soreness. No bleeding or vomiting. Objective: Vital Signs: Vital Signs Date Time Temp Pulse Resp B/P (MAP) Pulse Ox O2 Delivery O2 Flow Rate FiO2 04/23/18 11:13 97.7 98 16 94/60 (71) 100 Room Air 97.7 04/22/18 14:53 2 Labs: Laboratory Tests Test 04/22/18 16:00 04/22/18 20:05 04/22/18 23:44 White Blood Count 10.8 x10^3/uL 8.9 x10^3/uL 8.5 x10^3/uL Red Blood Count 2.29 x10^6/uL 2.23 x10^6/uL 2.38 x10^6/uL Hemoglobin 8.3 g/dL 8.4 g/dL 8.8 g/dL Hematocrit 23.9 % 23.3 % 24.7 % Mean Corpuscular Volume 104 fL 104 fL 104 fL Mean Corpuscular Hemoglobin 36 pg 38 pg 37 pg Mean Corpuscular Hemoglobin Concent 35 g/dL 36 g/dL 36 g/dL Red Cell Distribution Width 13.6 % 13.5 % 13.5 % Platelet Count 63 x10^3/uL 62 x10^3/uL 66 x10^3/uL Carcinoembryonic Antigen Pending CA 125 Antigen 9.3 U/mL Imaging: EGD 04/22 normal esophagus- MW at GE junction- injected with epi 2 cc- gastritis without ulcer, duodenitis without ulcer - NO active bleeding PE: GEN: NAD LUNGS: CTAB HEART: RRR ABD: periumbilical soreness NEURO/PSYCH: A & O 3, anxious A/P: Hematemesis, dark stools - no recurrence -on EGD as above: MW tear s/p inj, gastritis, duodenitis Alcohol abuse, macrocytic anemia Right adnexal mass -CA125 WNL -- Has DC orders. Avoid alcohol, continue PPI. Follow-up w/ LAUNDROMAT MANAGER as discussed. BERNADETTE DUKES Apr 23, 2018 11:55
[2018-04-23] MEDS: PROCHLORPERAZINE 10 MG/2 ML VIAL. IV PRN (13:00)
[2018-04-23 15:00] VITALS: BP 111/69
[2018-04-23 19:12] VITALS: BP 107/62
[2018-04-23 23:21] VITALS: BP 112/58
[2018-04-24] MEDS: ZOLPIDEM 5 MG TABLET. PO PRN (00:01)
[2018-04-24] MEDS: HYDROmorphone 2 MG/ML VIAL IVP PRN ×2 (00:02→03:58)
[2018-04-24] MEDS: PHENOL ORAL SPRAY 177ML BOTTLE. PO PRN (00:03)
[2018-04-24 03:50] VITALS: BP 134/73
[2018-04-24 07:00] VITALS: BP 133/78
[2018-04-24] MEDS: PANTOPRAZOLE 40 MG TABLET.DR. PO SCH (08:15)
[2018-04-24] MEDS: ONDANSETRON ODT 4 MG TAB.RAPDIS. PO PRN ×2 (08:15→15:44)
[2018-04-24] MEDS: MULTIVIT INFUSN,ADULT 4,VIT K 10 ML, THIAMINE INJ 100 MG, FOLIC ACID INJ 1 MG in IV NOR... IV SCH (08:16)
[2018-04-24] MEDS ORDERED: ONDA4TAB10 SL (10:47)
--- NOTE | 2018-04-24 10:50 | PDOC3 ---
Discharge Summary Visit Information Date of Admission: Apr 21, 2018 Date of Discharge: Apr 24, 2018 Admitting Diagnosis Comment: hematemesis resolved status post EGD 04/22/18 - SMALL Jones bateman tear Small left ovarian cyst. Large solid right adnexal mass, CA 125 normal Macrocytic anemia Alcohol abuse NSAID use Brief Hospital Course Allergies Allergies Coded Allergies Type Severity Reaction Last Updated Verified No Known Drug Allergies 04/22/18 No Vital Signs Vital Signs Date Time Temp Pulse Resp B/P (MAP) Pulse Ox O2 Delivery O2 Flow Rate FiO2 04/24/18 07:00 98.1 84 18 133/78 (96) 98 Room Air 98.1 Lab Results Laboratory Tests Test 04/22/18 11:40 04/22/18 16:00 04/22/18 20:05 04/22/18 23:44 White Blood Count 6.9 x10^3/uL (4.0-11.0) 10.8 x10^3/uL (4.0-11.0) 8.9 x10^3/uL (4.0-11.0) 8.5 x10^3/uL (4.0-11.0) Red Blood Count 2.39 x10^6/uL (3.50-5.40) 2.29 x10^6/uL (3.50-5.40) 2.23 x10^6/uL (3.50-5.40) 2.38 x10^6/uL (3.50-5.40) Hemoglobin 8.9 g/dL (12.0-15.5) 8.3 g/dL (12.0-15.5) 8.4 g/dL (12.0-15.5) 8.8 g/dL (12.0-15.5) Hematocrit 25.0 % (36.0-47.0) 23.9 % (36.0-47.0) 23.3 % (36.0-47.0) 24.7 % (36.0-47.0) Mean Corpuscular Volume 105 fL (79-100) 104 fL (79-100) 104 fL (79-100) 104 fL (79-100) Mean Corpuscular Hemoglobin 37 pg (25-35) 36 pg (25-35) 38 pg (25-35) 37 pg ( 25-35) Mean Corpuscular Hemoglobin Concent 36 g/dL (31-37) 35 g/dL (31-37) 36 g/dL (31-37) 36 g/dL (31-37) Red Cell Distribution Width 13.7 % (11.5-14.5) 13.6 % (11.5-14.5) 13.5 % (11.5-14.5) 13.5 % (11.5-14.5) Platelet Count 68 x10^3/uL (140-400) 63 x10^3/uL (140-400) 62 x10^3/uL (140-400) 66 x10^3/uL (140-400) CA 125 Antigen 9.3 U/mL (0.0-38.1) Brief Hospital Course Ms. Meier is a 38 old [sex] who presented with [ ] Ms. Meier is a 38 old female who uses NSAIDs and also was an alcoholic admitted because of hematemesis and was found to have a small Jones- Bateman tear via EGD 04/22/18. Hemodynamically stable. Incidental finding of a large solid right adnexal mass, CA 125 isNORMAL, likely benign adnexal mass. SHe will ff up woth OB GYNE as OP. 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
[2018-04-24 11:13] VITALS: BP 104/63
[2018-04-24] MEDS: ACETAMINOPHEN/CODEINE 300/30MG TABLET. PO PRN ×2 (12:28→17:45)
--- NOTE | 2018-04-24 14:38 | PDOC ---
Subjective: Subjective: No n/v, no stools. Tolerating PO but "taking it slow" because still has abd pain. Objective: Vital Signs: Vital Signs Date Time Temp Pulse Resp B/P (MAP) Pulse Ox O2 Delivery O2 Flow Rate FiO2 04/24/18 11:13 98.1 87 18 104/63 (77) 99 Room Air 98.1 PE: GEN: NAD - eating mashed potatoes and chicken strips LUNGS: CTAB HEART: RRR ABD: soft, mildly tender NEURO/PSYCH: A & O 3, cheerful A/P: Hematemesis, dark stools - resolved -on EGD: MW tear s/p inj, gastritis, duodenitis -- Tolerating PO, DC per primary. Follow-up w/ ALUMINUM SIDING APPLICATOR. Alcohol avoidance. BERNADETTE DUKES Apr 24, 2018 14:38
[2018-04-25 11:24] LABS: CEA 4.1 ng/mL (0.0-4.7)
== END 2018-04-24 18:35 | disposition home or self-care (01) | DRG 370 ==
LOC: ER 19:07 → 1 WEST ICU 20:45 → 6 SOUTH 04-22 17:23
PROVIDERS: ADMIT Internal Medicine; ATTEND Internal Medicine
PROC: 0DJ08ZZ Inspection of Upper Intestinal Tract, Via Natural or Artificial Opening Endoscopic (ICD-10-PCS; principal; 2018-04-22 14:30)
DX: K22.6 Gastro-esophageal laceration-hemorrhage syndrome (principal); F41.9 Anxiety disorder, unspecified; F17.210 Nicotine dependence, cigarettes, uncomplicated; G47.00 Insomnia, unspecified; J45.909 Unspecified asthma, uncomplicated; D53.9 Nutritional anemia, unspecified; F10.20 Alcohol dependence, uncomplicated; K29.70 Gastritis, unspecified, without bleeding; K29.80 Duodenitis without bleeding; N83.202 Unspecified ovarian cyst, left side; Z83.3 Family history of diabetes mellitus; Z82.49 Family history of ischemic heart disease and other diseases of the circulatory system
CPT/HCPCS: 36415; 43239; 71260; 74177; 76856; 80048; 80053; 80076; 82378; 82607; 83540; 83550; 83605; 83690; 84484; 84702; 85025; 85027; 85610; 85730; 86304; 86850; 86900; 86901; 87641; 88175; 93005; 96361; 96374; 96375; C9113; J0171; J0780; J1170; J2060; J2354; J2405; J2704; J3010; J7030; Q0162; Q0163; Q9967; 99285-25